=== PATIENT | female | born 1965 | race Caucasian/White ===

== ENCOUNTER 2016-12-03 11:03 | Emergency (ER) | payer OTHER ==
--- NOTE | 2016-12-03 11:12 | UC ---
Hypertension HPI - HPI Summary HPI Summary: 51 year old female presents with high blood pressure , fatigue and shortness of breath. I am very concerned about heart block and will send her to the ER - History of Current Complaint Stated Complaint: TIRED,ELEVATED BP Time Seen by Provider: 12/03/16 11:11 Hx Last Menstrual Period: SOMETIME IN OCTOBER- SHE IS NOT SURE, PERIODS ARE LESS FREQ - Allergies/Home Medications Allergies/Adverse Reactions: Allergies Allergy/AdvReac Type Severity Reaction Status Date / Time No Known Allergies Allergy Verified 12/03/16 13:33 Home Medications: Home Medications NK [No Home Medications Reported] 12/03/16 [History Confirmed 12/03/16] PMH/Surg Hx/FS Hx/Imm Hx Previously Healthy: Yes - Surgical History Surgical History: Yes Surgery Procedure, Year, and Place: c-sections x 3, tonsilectomy - Family History Known Family History: Positive: Hypertension - Social History Alcohol Use: None Substance Use Type: None Smoking Status (MU): Heavy Every Day Tobacco Smoker Type: Cigarettes Amount Used/How Often: 1/2 PPD Have You Smoked in the Last Year: Yes Household Exposure Type: Cigarettes Review of Systems Constitutional: Fatigue Skin: Negative Eyes: Negative ENT: Negative Respiratory: Negative Cardiovascular: Negative Gastrointestinal: Negative Genitourinary: Negative Motor: Negative Neurovascular: Negative Musculoskeletal: Negative Neurological: Negative Psychological: Negative All Other Systems Reviewed And Are Negative: Yes Physical Exam Triage Information Reviewed: Yes Appearance: Ill-Appearing Vital Signs Reviewed: Yes Eye Exam: Normal ENT Exam: Normal Dental Exam: Normal Neck exam: Normal Neck: Positive: 1 Respiratory Exam: Normal Cardiovascular: Positive: Bradycardia Abdominal Exam: Normal Musculoskeletal Exam: Normal Neurological Exam: Normal Psychological Exam: Normal Skin Exam: Normal Hypertension Course/Dx - Course Course Of Treatment: ER - Differential Dx/Diagnosis Provider Diagnoses: HYPERTENSION Discharge - Discharge Plan Condition: Stable Disposition: HOME Patient Education Materials: Hypertension (ED) Referrals: Estephania Null PA [Physician Insurance Claim Representative] - Additional Instructions: GO TO ER FOR CARDIAC EVALUATION.
[2016-12-03 11:22] VITALS: BP 151/65
== END 2016-12-03 11:41 | disposition home or self-care (01) ==
LOC: UCCORT 11:03
DX: I10 Essential (primary) hypertension (principal); R53.83 Other fatigue; R06.02 Shortness of breath; R07.89 Other chest pain; F17.210 Nicotine dependence, cigarettes, uncomplicated
CPT/HCPCS: 93005; 99211; G0463

== ENCOUNTER 2016-12-03 13:25 | Observation (INO) | payer OTHER ==
[2016-12-03] MEDS ORDERED: NS 0.9% 1000 ML* 1,000 ML IV ONE (14:27)
--- NOTE | 2016-12-03 15:13 | RAD ---
Indication: Hypertension, bradycardia. Single frontal view of the chest performed at 1451 hours was reviewed. No prior study is available for comparison. No mediastinal shift is noted. Heart is of normal size and configuration. Lung kat appear clear. IMPRESSION: NO ACTIVE CARDIOPULMONARY DISEASE IS NOTED.
[2016-12-03 15:19] LABS: Hematocrit 42 % (35-47); Hemoglobin 13.8 g/dl (12.0-16.0); Mean Corpuscular HGB Conc 33 g/dl (31-36); Mean Corpuscular Hemoglobin 31 pg (27-31); Mean Corpuscular Volume 93 fL (80-97); Mean Platelet Volume 10 um3 (7.4-10.4); Red Blood Count 4.53 10^6/ul (4.0-5.4); Red Cell Distribution Width 14 % (10.5-15)
[2016-12-03 15:20] LABS: Urine Bilirubin Negative (Negative); Urine Glucose Negative (Negative); Urine Nitrite Negative (Negative)
[2016-12-03 15:34] LABS: Albumin 4.1 g/dL (3.2-5.2); BUN/Creatinine Ratio 24.1 (8-20); Calcium 8.9 mg/dL (8.6-10.3); EGFR African American 139.9 (>60); EGFR Non-African American 108.7 (>60); Globulin 2.8 g/dL (2-4); Magnesium 2.1 mg/dL (1.9-2.7); Potassium 3.7 mmol/L (3.5-5.0); Total Bilirubin 0.5 mg/dL (0.2-1.0); Total Protein 6.9 g/dL (6.4-8.9)
[2016-12-03 15:36] LABS: Troponin I 0.01 ng/mL (<0.04)
[2016-12-03 15:51] LABS: T4 8.39 mcg/mL (6.09-12.23)
[2016-12-03 15:53] LABS: TSH (Thyroid Stimulating Horm) 3.2 mcIU/mL (0.34-5.60)
--- NOTE | 2016-12-03 19:41 | ED ---
Daryl Nicole Thomas, scribed for Laura Matamoros MD on 12/03/16 at 1431 . Palpitations / Dysrhythmia - HPI Summary HPI Summary: The pt is a 51 y/o F accompanied by mother, sister, and other family members referred from urgent care c/o bradycardia and hypertension. In the ED, her HR is 48 BPM and her BP is 175/75. Pt additionally c/o L-sided facial pain (ache), L shoulder pain (ache), generally not feeling well, tiredness, and insomnia ( sleeps 3-4 hours per day) and "liver pain" for weeks. Was told she had "cirrhosis" but she states she does not drink. Has not had a liver bx. Pt denies CP and leg pain. PMHx: HTN, premclampsia, cirrhosis. PSHx: C-sections x3, tonsillectomy. SHx: smoking (1/2 PPD), no illicit drugs, no alcohol. FHx: HTN. She had a slow HR where a catheterization was performed in [facility] more than 2 yrs ago, and she was told the cath was normal. 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 She lives in [place] and presented at the [facility], but states she did not want to go to the [facility], or a [facility], so came to [place] by private car. The last time she saw her PCP was Dr. Null, who has now retired, more than three years ago. Pt is from [place], states she can understand my [place] and declines an interpreter for the deaf. - History of Current Complaint Chief Complaint: EDDysrhythmPalp Time Seen by Provider: 12/03/16 14:24 Hx Obtained From: Patient, Family/Diffuser Operator - mother, sister, and 2 other family members present Onset/Duration: Gradual Onset, Lasting Weeks, Still Present Timing: Constant Severity Initially: Moderate Severity Currently: Moderate Character: Slow Aggravating: Nothing Alleviating: Nothing - Risk Factors Cardiac: Hypertension, Smoking, Family History Pulmonary Embolism: Smoking - Allergy/Home Medications Allergies/Adverse Reactions: Allergies Allergy/AdvReac Type Severity Reaction Status Date / Time No Known Allergies Allergy Verified 12/03/16 13:33 PMH/Surg Hx/FS Hx/Imm Hx Previously Healthy: No Endocrine/Hematology History: Denies: Hx Diabetes, Hx Systemic Lupus Erythematosus Cardiovascular History: Reports: Hx Hypertension - gestational Respiratory History: Denies: Hx Chronic Obstructive Pulmonary Disease (COPD) GI History: Reports: Hx Cirrhosis Musculoskeletal History: Denies: Hx Rheumatoid Arthritis - Surgical History Surgery Procedure, Year, and Place: c-sections x 3, tonsilectomy Infectious Disease History: No Infectious Disease History: Denies: Traveled Outside the [place] in Last 30 Days - Family History Known Family History: Positive: Hypertension, Other - thyroid disease, hyper and hypo - Social History Alcohol Use: None Substance Use Type: Reports: None Smoking Status (MU): Light Every Day Tobacco Smoker Type: Cigarettes Amount Used/How Often: 2-3 cigarettes daily Have You Smoked in the Last Year: Yes Review of Systems Positive: Fatigue. Negative: Fever Positive: Other - POS: bradycardia (48 BPM), elevated BP (175/75). Negative: Chest Pain Respiratory: Negative Positive: Other - "liver pain" Genitourinary: Negative Positive: Other - POS: L-sided facial pain (ache), L shoulder pain (ache); NEG: leg pain Skin: Negative Neurological: Other - POS: tiredness, insomnia Psychological: Normal All Other Systems Reviewed And Are Negative: Yes Physical Exam Triage Information Reviewed: Yes Vital Signs On Initial Exam: Initial Vitals Temp Pulse Resp BP Pulse Ox 98.2 F 48 12 184/76 100 12/03/16 13:33 12/03/16 13:33 12/03/16 13:33 12/03/16 13:33 12/03/16 13:33 Vital Signs Reviewed: Yes Appearance: Positive: Well-Appearing, Well-Nourished, Pain Distress Skin: Positive: Warm, Skin Color Reflects Adequate Perfusion Head/Face: Positive: Normal Head/Face Inspection Eyes: Positive: Conjunctiva Clear ENT: Positive: Normal ENT inspection Neck: Positive: Supple, Nontender, No Lymphadenopathy Respiratory/Lung Sounds: Positive: Clear to Auscultation, Breath Sounds Present , Other - No respiratory distress Cardiovascular: Positive: Pulses are Symmetrical in both Upper and Lower Extremities, Bradycardia, Other - Elevated BP. Brisk cap refill. Negative: Leg Edema Left, Leg Edema Right Abdomen Description: Positive: Nontender, No Organomegaly, Soft. Negative: Bruit, Distended, Guarding, Hepatomegaly, McBurney's Point Tenderness, Peritoneal Signs, Pulsatile Mass, Splenomegaly Bowel Sounds: Positive: Present Musculoskeletal: Positive: Strength/ROM Intact, Other - NEG: calf tenderness. Negative: Edema Left, Edema Right Neurological: Positive: Sensory/Motor Intact, Alert, Oriented to Person Place, Time, Speech Normal Psychiatric: Positive: Normal - Elmore Coma Scale Coma Scale Total: 15 Diagnostics - Vital Signs Vital Signs Temp Pulse Resp BP Pulse Ox 12/03/16 14:01 98.2 F 48 12 175/75 98 12/03/16 13:33 98.2 F 48 12 184/76 100 - Laboratory Lab Results: Lab Results 12/03/16 12/03/16 12/03/16 Range/Units 15:00 15:03 15:03 WBC 8.0 (3.5-10.8) 10^3/ul RBC 4.53 (4.0-5.4) 10^6/ul Hgb 13.8 (12.0-16.0) g/dl Hct 42 (35-47) % MCV 93 (80-97) fL MCH 31 (27-31) pg MCHC 33 (31-36) g/dl RDW 14 (10.5-15) % Plt Count 234 (150-450) 10^3/ul MPV 10 (7.4-10.4) um3 Neut % (Auto) 45.6 (38-83) % Lymph % (Auto) 40.4 (25-47) % Brooke % (Auto) 5.5 (1-9) % Eos % (Auto) 7.7 H (0-6) % Baso % (Auto) 0.8 (0-2) % Absolute Neuts (auto) 3.7 (1.5-7.7) 10^3/ul Absolute Lymphs (auto) 3.3 (1.0-4.8) 10^3/ul Absolute Monos (auto) 0.4 (0-0.8) 10^3/ul Absolute Eos (auto) 0.6 (0-0.6) 10^3/ul Absolute Basos (auto) 0.1 (0-0.2) 10^3/ul Absolute Nucleated RBC 0.01 10^3/ul Nucleated RBC % 0.1 INR (Anticoag Therapy) 0.86 L (0.89-1.11) APTT 31.0 (26.0-36.3) seconds D-Dimer, Quantitative < 200 (Less Than 230) ng/mL Sodium (133-145) mmol/L Potassium (3.5-5.0) mmol/L Chloride (101-111) mmol/L Carbon Dioxide (22-32) mmol/L Anion Gap (2-11) mmol/L BUN (6-24) mg/dL Creatinine (0.51-0.95) mg/dL Est GFR ( Amer) (>60) Est GFR (Non-Af Amer) (>60) BUN/Creatinine Ratio (8-20) Glucose (70-100) mg/dL Lactic Acid (0.5-2.0) mmol/L Calcium (8.6-10.3) mg/dL Magnesium (1.9-2.7) mg/dL Total Bilirubin (0.2-1.0) mg/dL AST (13-39) U/L ALT (7-52) U/L Alkaline Phosphatase (34-104) U/L Total Creatine Kinase (10-223) U/L CK-MB (CK-2) (0.6-6.3) ng/mL Troponin I (<0.04) ng/mL B-Natriuretic Peptide ( - 100) pg/mL Total Protein (6.4-8.9) g/dL Albumin (3.2-5.2) g/dL Globulin (2-4) g/dL Albumin/Globulin Ratio (1-3) TSH (0.34-5.60) mcIU/mL Thyroxine (T4) (6.09-12.23) mcg/mL Urine Color Straw Urine Appearance Clear Urine pH 7.0 (5-9) Ur Specific Cranbury 1.003 L (1.010-1.030) Urine Protein Negative (Negative) Urine Ketones Negative (Negative) Urine Blood Negative (Negative) Urine Nitrate Negative (Negative) Urine Bilirubin Negative (Negative) Urine Urobilinogen Negative (Negative) Ur Leukocyte Esterase Negative (Negative) Urine Glucose Negative (Negative) 12/03/16 12/03/16 12/03/16 Range/Units 15:03 15:03 15:03 WBC (3.5-10.8) 10^3/ul RBC (4.0-5.4) 10^6/ul Hgb (12.0-16.0) g/dl Hct (35-47) % MCV (80-97) fL MCH (27-31) pg MCHC (31-36) g/dl RDW (10.5-15) % Plt Count (150-450) 10^3/ul MPV (7.4-10.4) um3 Neut % (Auto) (38-83) % Lymph % (Auto) (25-47) % Brooke % (Auto) (1-9) % Eos % (Auto) (0-6) % Baso % (Auto) (0-2) % Absolute Neuts (auto) (1.5-7.7) 10^3/ul Absolute Lymphs (auto) (1.0-4.8) 10^3/ul Absolute Monos (auto) (0-0.8) 10^3/ul Absolute Eos (auto) (0-0.6) 10^3/ul Absolute Basos (auto) (0-0.2) 10^3/ul Absolute Nucleated RBC 10^3/ul Nucleated RBC % INR (Anticoag Therapy) (0.89-1.11) APTT (26.0-36.3) seconds D-Dimer, Quantitative (Less Than 230) ng/mL Sodium 139 (133-145) mmol/L Potassium 3.7 (3.5-5.0) mmol/L Chloride 106 (101-111) mmol/L Carbon Dioxide 26 (22-32) mmol/L Anion Gap 7 (2-11) mmol/L BUN 14 (6-24) mg/dL Creatinine 0.58 (0.51-0.95) mg/dL Est GFR ( Amer) 139.9 (>60) Est GFR (Non-Af Amer) 108.7 (>60) BUN/Creatinine Ratio 24.1 H (8-20) Glucose 90 (70-100) mg/dL Lactic Acid 0.6 (0.5-2.0) mmol/L Calcium 8.9 (8.6-10.3) mg/dL Magnesium 2.1 (1.9-2.7) mg/dL Total Bilirubin 0.50 (0.2-1.0) mg/dL AST 21 (13-39) U/L ALT 24 (7-52) U/L Alkaline Phosphatase 74 (34-104) U/L Total Creatine Kinase 76 (10-223) U/L CK-MB (CK-2) 1.6 (0.6-6.3) ng/mL Troponin I 0.01 (<0.04) ng/mL B-Natriuretic Peptide 76 ( - 100) pg/mL Total Protein 6.9 (6.4-8.9) g/dL Albumin 4.1 (3.2-5.2) g/dL Globulin 2.8 (2-4) g/dL Albumin/Globulin Ratio 1.5 (1-3) TSH 3.20 (0.34-5.60) mcIU/mL Thyroxine (T4) 8.39 (6.09-12.23) mcg/mL Urine Color Urine Appearance Urine pH (5-9) Ur Specific [place] (1.010-1.030) Urine Protein (Negative) Urine Ketones (Negative) Urine Blood (Negative) Urine Nitrate (Negative) Urine Bilirubin (Negative) Urine Urobilinogen (Negative) Ur Leukocyte Esterase (Negative) Urine Glucose (Negative) Result Diagrams: 12/03/16 15:03 12/03/16 15:03 Lab Statement: Any lab studies that have been ordered have been reviewed, and results considered in the medical decision making process. - Radiology CXR Xray Interpretation: No Acute Changes - No active cardiopulmonary disease Radiology Interpretation Completed By: Radiologist - EKG 13:40 Cardiac Rate: Bradycardia - 48 BPM EKG Rhythm: Sinus Bradycardia EKG Interpretation: Nml AV, nml IV conduction time, nml QTc (419), nml Pierson (15) EKG Comparison: Other - on EKG performed today at 11:08, there is an additional PVC Re-Evaluation - Re-Evaluation First Eval Re-Evaluation Time: 18:30 - advised of lab results, no new complaints. HR 46, Change: Unchanged Course/Dx - Course Assessment/Plan: The pt is a 51 y/o F accompanied by mother, sister, and other family members referred from urgent care c/o bradycardia and hypertension. In the ED, her HR is 48 BPM and her BP is 175/75. Pt additionally c/o L-sided facial pain (ache), L shoulder pain (ache), tiredness, and insomnia (sleeps 3-4 hours per day). Pt denies CP and leg pain. PMHx: HTN, premclampsia, cirrhosis. PSHx: C-sections x3, tonsillectomy. SHx: smoking (1/2 PPD), no illicit drugs, no alcohol. FHx: HTN. She had a slow HR in past and was evaluated in [facility] ( cannot remember which hospital) where a catheterization was performed. Was advised that the cath was OK, thinks it was more than two years ago. 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 She lives in [place]. The last time she saw her PCP was more than three years ago. EKG reveals sinus bradycardia at 48 BPM, nml AV, nml IV conduction time, nml QTc (419), axis 15, no acute changes, EKG performed today at 11:08 has additional PVC. CXR reveals no active cardiopulmonary disease. Bloodwork shows BUN/Creatinine 24.1, INR 0.86, Eos % 7.7. UA is negative. first troponin is negative. d-dimer is negative. Thyroid function is normal. LFT's are normal, so no further evaluation of "liver pain" done at this time. Patient s medication reviewed this visit. Blood pressure noted. In the ED course she was given ASA and IV fluids. I consulted with Dr. Oseguera, cardiology, at 18: 39. He said that he would be available to consult if needed. I also consulted with Dr. Martinez, hospitalist. She will admit the patient for observation at 18: 47. Pt is agreeable with this plan. - Diagnoses Differential Diagnosis/HQI/PQRI: Positive: AV Block, Cardiomyopathy, Medication Induced, Pulmonary Embolism, Other - ACS Provider Diagnoses: Bradycardia, Elevated BP without diagnosis of hypertension - Physician Notifications Discussed Care Of Patient With: Singh Oseguera MD Time Discussed With Above Provider: 18:24 Instructed by Provider To: Admit As Observation - I first paged Dr. Oseguera at 18 :24. We spoke at 18:39 and discussed admitting the patient. He said that he would be available to consult if needed. I also consulted with Dr. Martinez, hospitalist. She will admit the patient for observation at 18:47. - Critical Care Time Critical Care Time: 30-74 min Discharge - Discharge Plan Condition: Fair Disposition: ADMITTED TO [facility] Referrals: Irasema Kumar MD [Primary Care Provider] - The documentation as recorded by the Daryl kebede Thomas accurately reflects the service I personally performed and the decisions made by me, Laura Matamoros MD.
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
[2016-12-03] MEDS ORDERED: Albuterol 2.5 MG/3 ML NEB.SOL* (0.083%) INH PRN (20:24)
[2016-12-03] MEDS ORDERED: Ondansetron INJ* 2 MG/ML VIAL IV PRN (20:27)
[2016-12-03] MEDS ORDERED: traMADol TAB* 50 MG PO PRN (20:27)
[2016-12-03] MEDS ORDERED: CMCS: Melatonin (NF) 3 MG TAB PO PRN (20:27)
[2016-12-03] MEDS ORDERED: Nicotine Inhaler* 10 MG AMP INH PRN (20:27)
[2016-12-03] MEDS: Docusate CAP* 100 MG PO SCH (22:14)
[2016-12-03] MEDS: DOXYcycline CAP(*) 100 MG PO SCH (22:14)
[2016-12-03] MEDS: NS 0.9% 1000 ML* 1,000 ML IV SCH (22:40)
[2016-12-03] MEDS: Acetaminophen TAB* 325 MG PO PRN (22:51)
[2016-12-04] MEDS ORDERED: Omeprazole CAP* 20 MG PO SCH (06:00)
[2016-12-04] MEDS: Docusate CAP* 100 MG PO SCH (07:38)
[2016-12-04] MEDS: DOXYcycline CAP(*) 100 MG PO SCH (07:38)
[2016-12-04] MEDS: Acetaminophen TAB* 325 MG PO PRN (07:39)
[2016-12-04] MEDS: NS 0.9% 1000 ML* 1,000 ML IV SCH (13:13)
--- NOTE | 2016-12-04 16:21 | ECHO ---
Patient: NELI CORDON [facility] Rec#: [id number] : 1965 Date: 12/04/2016 Age: 51y Height: 170.18 cm / 67.0 in Weight: 97.98 kg / 215.9 lbs Sex: F BSA: 2.09 Room#: 432 Admit Date#: 12/03/2016 Type: Inpatient Referring: Brian Kaur MD Reading: Kaden Hwang MD Client Service Representative: [facility] Tran[facility]ch[facility]ogram Indication: Palpitations, bradycardia BP: 114/65 HR: 44 Rhythm: Bradycardia Findings History: HTN, premclampsia, cirrohosis, smoker, cardiac cath 2016 in [place]. Technical Comments: The study quality is fair. The study is technically limited due to poor parasternal windows. The study is technically limited due to patient body habitus. Completed at 1507. Left Ventricle: The left ventricular chamber size is mildly dilated. Mild concentric left ventricular hypertrophy is observed. Global left ventricular wall motion and contractility are within normal limits. There is normal left ventricular systolic function.Marked bradycardia in the 40's noted throughout the study. The estimated ejection fraction is 55-60%. Normal left ventricular diastolic filling is observed. Left Atrium: The left atrium is severely dilated. Right Ventricle: The right ventricular cavity size is normal. The right ventricular global systolic function is low normal. Right Atrium: The right atrium is moderately dilated. Aortic Valve: The aortic valve is trileaflet. The aortic valve leaflets are mildly thickened. There is no evidence of aortic regurgitation. There is no evidence of aortic stenosis. Mitral Valve: The mitral valve leaflets are mildly thickened. There is mild mitral regurgitation. There is no evidence of mitral stenosis. Tricuspid Valve: The tricuspid valve leaflets are normal. There is mild tricuspid regurgitation. The right ventricular systolic pressure is estimated at 33 mmHg. There is evidence that pulmonary hypertension may be underestimated. There is no tricuspid stenosis. Pulmonic Valve: The pulmonic valve structure is not well visualized. There is a trace pulmonic regurgitation. Pericardium: There is no significant pericardial effusion. A pericardial fat pad is visualized. Aorta: The ascending aorta is not well visualized. There is no dilatation of the aortic arch. There is no dilation of the aortic root. Pulmonary Artery: The main pulmonary artery is not well visualized. Venous: The inferior vena cava is dilated. There is an approximate 50% respiratory change in the inferior vena cava dimension. Summary: There was not any prior study for comparison. Conclusions The study quality is fair. There is normal left ventricular systolic function. Marked bradycardia in the 40's noted throughout the study. The estimated ejection fraction is 55-60%. The left atrium is severely dilated. The right ventricular global systolic function is low normal. The right atrium is moderately dilated. The aortic valve leaflets are mildly thickened. There is mild tricuspid regurgitation. The right ventricular systolic pressure is estimated at 33 mmHg. Measurements Name Value Normal Range RVIDd (AP) 2D 3.3 cm (0.9 - 2.6) RVDdMajor (2D) 3.8 cm (2.2 - 4.4) RAd ISD 4CH 5.7 cm (3.4 - 4.9) RA (A4C)W 4 cm (2.9 - 4.6) IVSd (2D) 1.1 cm (0.6 - 1) LVPWd (2D) 1.1 cm (0.6 - 1) LVIDd (2D) 5.6 cm (3.6 - 5.4) LVIDs (2D) 3.85 cm - LV FS (2D) 31 % (25 - 45) Aortic Annulus 2.2 cm (1.4 - 2.6) Ao root diameter (2D) 3 cm (2.1 - 3.5) Aortic arch 3.2 cm (1.8 - 3.4) LA dimension (AP) 2D 4.6 cm (2.3 - 3.8) LAd ISD 4CH 5.9 cm (2.9 - 5.3) LA ISD 4CH W 5 cm (2.5 - 4.5) Name Value Normal Range LA ESV SP 4CH (A/L) 90 ml - LA ESV SP 2CH (A/L) 125 ml - LA ESV BP (A/L) 106 ml - LA ESV BP (A/L) index 50.86 ml/m2 - LA ESV SP 4CH (MOD) 81 ml - LA ESV SP 2CH (MOD) 119 ml - Name Value Normal Range MV E-wave Vmax 0.74 m/sec - MV deceleration time 196.85 msec - MV A-wave Vmax 0.3 m/sec - MV E:A ratio 2.5 ratio - LV septal e' Vmax 0.1 m/sec - LV lateral e' Vmax 0.12 m/sec - LV E:e' septal ratio 7.4 ratio - LV E:e' lateral ratio 6.17 ratio - Name Value Normal Range AV Vmax 1.42 m/sec - AV VTI 35.1 cm - AV peak gradient 8.06 mmHg - AV mean gradient 4.73 mmHg - LVOT Vmax 0.97 m/sec - LVOT VTI 24.41 cm - LVOT peak gradient 3.77 mmHg - LVOT mean gradient 2.02 mmHg - SUKHI Vmax 1.1 m/sec - Name Value Normal Range TR Vmax 2.1 m/sec - TR peak gradient 18 mmHg - RAP 15 mmHg - RVSP 33 mmHg - IVC diameter 2.2 cm - Name Value Normal Range PV Vmax 0.74 m/sec - PV peak gradient 2.19 mmHg -
[2016-12-04 18:35] VITALS: BP 143/78
--- NOTE | 2016-12-05 03:10 | DS ---
DISCHARGE SUMMARY: DATE OF ADMISSION: 12/03/16 DATE OF DISCHARGE: 12/04/16 HISTORY OF PRESENT ILLNESS/HOSPITAL COURSE: This is a 51-year-old woman, who presented with a chief complaint of weakness. She also complained about problems at work with job stress and sleep disrup tion from shift changes. She reported aching in her joints of her hands, elbows and knees. She com plained of headache, some dizziness and palpitations, feeling her heart beat hard but not fast. She had a negative cardiac catheterization in [place] 7 years ago. The rest of the history and physic al exam is detailed in the admission note. EKG showed sinus bradycardia at 48. On the monitor while lying in bed, she ranged from 39 to 42. I think she was basically asymptomatic from this. I encouraged her to walk around. The patient was started on doxycycline pending the results of a Lyme serology. I have ordered an ec hocardiogram, which will be done before discharge. I would like to review the report before she goe s. It is not available at the time of this dictation. I note the Lyme serology was received, it sh ould take a few days to come back with final report. FINAL DIAGNOSES: 1. Sinus bradycardia. 2. Multiple arthralgias. 3. Stress from employment issues. DISCHARGE MEDICATIONS: 1. Acetaminophen 650 mg every 6 hours p.r.n. 2. Doxycycline 100 mg b.i.d. for 13 more days. [id number]/[facility] #: [id number]
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
== END 2016-12-04 18:05 | disposition home or self-care (01) ==
LOC: ED 13:25 → MEDTELE 19:24
PROVIDERS: ADMIT Hospitalist; ATTEND Internal Medicine
DX: R00.1 Bradycardia, unspecified (principal); M25.50 Pain in unspecified joint; Z56.6 Other physical and mental strain related to work; I36.1 Nonrheumatic tricuspid (valve) insufficiency; R03.0 Elevated blood-pressure reading, without diagnosis of hypertension; F17.210 Nicotine dependence, cigarettes, uncomplicated; R53.83 Other fatigue; F41.8 Other specified anxiety disorders; R53.1 Weakness
CPT/HCPCS: 36415; 71010; 80053; 81003; 82550; 82553; 83605; 83735; 83880; 84436; 84443; 84484; 85025; 85379; 85610; 85730; 86618; 93005; 93306; 94760; 96374; 99284; A9270-GY; G0378

== ENCOUNTER 2018-07-07 13:01 | Emergency (ER) | payer OTHER ==
[2018-07-07 14:18] VITALS: BP 123/78
--- NOTE | 2018-07-07 14:49 | UC ---
Ear Complaint HPI - HPI Summary HPI Summary: 53-year-old woman chief complaint of left ear pain. Started 4 days ago ago. She has had cold symptoms. No fevers or chills. No trauma. Pain is worse when Chews an open close her mouth. Denies dental infection or tooth pain. No rash. - History of Current Complaint Chief Complaint: UCEar Stated Complaint: LEFT EAR PAIN Time Seen by Provider: 07/07/18 14:37 Hx Last Menstrual Period: SOMETIME IN OCTOBER- SHE IS NOT SURE, PERIODS ARE LESS FREQ Pain Intensity: 6 - Allergies/Home Medications Allergies/Adverse Reactions: Allergies Allergy/AdvReac Type Severity Reaction Status Date / Time adhesive Allergy Blisters, Verified 07/07/18 14:13 Itching, Swelling gluten Allergy GI Upset, Verified 07/07/18 14:13 Vomiting Home Medications: Home Medications Acetaminophen [Acetaminophen Extra Strength] 1,000 mg PO Q6H PRN 07/07/18 [ History Confirmed 07/07/18] Aspirin 81 mg CHEW TAB* [Aspirin Low Dose TAB*] 81 mg PO DAILY 07/07/18 [ History Confirmed 07/07/18] DULoxetine DR CAP* [Cymbalta CAP*] 30 mg PO DAILY 07/07/18 [History Confirmed ] Losartan TAB* [Cozaar TAB*] 50 mg PO DAILY 07/07/18 [History Confirmed 07/07/18] Omeprazole CAP (NF) [Prilosec CAP* 20 MG] 20 mg PO DAILY 07/07/18 [History Confirmed 07/07/18] tiZANidine TAB* [Zanaflex TAB*] 4 mg PO DAILY PRN 07/07/18 [History Confirmed ] PMH/Surg Hx/FS Hx/Imm Hx Previously Healthy: Yes Endocrine History: Dyslipidemia Cardiovascular History: Hypertension GI/ History: Gastroesophageal Reflux - Surgical History Surgical History: Yes Surgery Procedure, Year, and Place: Right TKA; c-sections x 3, tonsilectomy, appy, tubal - Family History Known Family History: Positive: Hypertension, Other - thyroid disease, hyper and hypo - Social History Alcohol Use: None Substance Use Type: None Smoking Status (MU): Former Smoker Type: Cigarettes Amount Used/How Often: 2-3 cigarettes daily Have You Smoked in the Last Year: Yes When Did the Patient Quit Smoking/Using Tobacco: ~2017 Household Exposure Type: Cigarettes Review of Systems All Other Systems Reviewed And Are Negative: Yes Constitutional: Positive: Negative Skin: Positive: Negative Eyes: Positive: Negative ENT: Positive: Ear Ache, Nasal Discharge Respiratory: Positive: Negative Cardiovascular: Positive: Negative Gastrointestinal: Positive: Negative Motor: Positive: Negative Neurovascular: Positive: Negative Musculoskeletal: Positive: Negative Neurological: Positive: Negative Psychological: Positive: Negative Is Patient Immunocompromised?: No Physical Exam Triage Information Reviewed: Yes Appearance: Well-Appearing, No Pain Distress, Well-Nourished Vital Signs: Initial Vital Signs Temp 99.2 F 07/07/18 14:10 Pulse 82 07/07/18 14:10 Resp 20 07/07/18 14:10 BP 123/78 07/07/18 14:10 Pulse Ox 100 07/07/18 14:10 Vital Signs Reviewed: Yes Eye Exam: Normal Eyes: Positive: Conjunctiva Clear ENT: Positive: Pharynx normal, TMs normal, Other - Mild tenderness in the left ear canal with exam. Tender to palpation at left TMJ. Parotid glans non tender. Dental Exam: Normal Dental: Negative: Gross Decay/Caries @, Dental Fracture @ Neck: Positive: Supple Respiratory: Positive: Lungs clear, Normal breath sounds, No respiratory distress Cardiovascular: Positive: RRR Musculoskeletal Exam: Normal Musculoskeletal: Positive: Strength Intact, ROM Intact Neurological Exam: Normal Neurological: Positive: Alert, Muscle Tone Normal Psychological Exam: Normal Psychological: Positive: Age Appropriate Behavior Skin Exam: Normal Skin: Negative: Rashes Ear Complaint Course/Dx - Course Course Of Treatment: Patient is tender on the left side of the face primarily at the TMJ left TMJ. No temporal tenderness to palpation. Because of the possibility of infection we will go ahead and treat with an antibiotic. Otherwise we'll treat for TMJ. The plan is for the patient to follow-up with her primary care physician. Reevaluate sooner if worse. - Differential Dx/Diagnosis Provider Diagnosis: Left-sided face pain, Left ear pain, TMJ tenderness, left Discharge - Sign-Out/Discharge Documenting (check all that apply): Patient Departure All imaging exams completed and their final reports reviewed: No Studies - Discharge Plan Condition: Stable Disposition: HOME Prescriptions: Amoxicillin/Clavulanate TAB* [Augmentin TAB 875*] 875 mg PO BID #20 tab Ibuprofen TAB* [Motrin TAB* 600 MG] 600 mg PO Q8H PRN #30 tab PRN Reason: Pain Patient Education Materials: Temporomandibular Disorder (ED), Earache (ED) Referrals: Jus Louis MD [Primary Care Provider] - Additional Instructions: FOLLOW UP WITH YOUR DOCTOR. GET RECHECKED FOR ANY WORSENING OF YOUR CONDITION OR QUESTIONS OR CONCERNS. - Billing Disposition and Condition Condition: STABLE Disposition: Home
== END 2018-07-07 14:58 | disposition home or self-care (01) ==
LOC: UCCORT 13:01
DX: H92.02 Otalgia, left ear (principal); R51 Headache; R29.898 Other symptoms and signs involving the musculoskeletal system; E78.5 Hyperlipidemia, unspecified; I10 Essential (primary) hypertension; K21.9 Gastro-esophageal reflux disease without esophagitis; Z79.899 Other long term (current) drug therapy; Z91.09 Other allergy status, other than to drugs and biological substances; Z87.891 Personal history of nicotine dependence; Z91.018 Allergy to other foods; Z79.82 Long term (current) use of aspirin
CPT/HCPCS: 99212; G0463

== ENCOUNTER 2019-06-03 10:13 | Emergency (ER) | payer OTHER ==
--- OUTSIDE RECORDS SUMMARY | 2019-06-03 10:36 | XMS REPORT | Continuity of Care Document ---
:1965 External Reference #:[id number] Author Name Dev Khan M.D. (transmitted by agent of provider Britany Tim) Address [address] [place] [id number] Care Team Providers Name Role Phone Halina Garner NP Care Team Information Check And Transfer Beader [phone] Problems Active Problems Provider Date Disorder of thyroid gland Dev Khan M.D. Onset: 01/13/2011 Head and neck swelling Dev Khan M.D. Onset: 01/13/2011 Social History Type Date Description Comments Sex Unknown Cigarette Use Quit 3 Years Ago ETOH Use Rarely consumes alcohol Recreational Drug Use Never Used Drugs Allergies, Adverse Reactions, Alerts Active Allergies Reaction Severity Comments Date NKDA 01/07/2011 Laundry Soap 02/03/2017 Gummies 02/03/2017 Medications Active Medications SIG Qnty Indications Ordering Date Provider Cyclobenzaprine HCL one tab daily 15tabs Dev Khan, 11/01/2018 5mg Tablets at hs. M.D. Levothyroxine Sodium half pill by 30tabs Dev Khan, 10/24/2018 125mcg mouth every M.D. Tablets day Losartan Potassium 1 by mouth Unknown 50mg Tablets every day Duloxetine HCL 1 by mouth Unknown 30mg Caps DR Part twice a day Hydroxychloroquine Sulfate 1 by mouth Unknown 200mg every day Tablets Tramadol HCL 1-2. tab q4h. Unknown 50mg Tablets for pain Immunizations Description No Information Available Vital Signs Date Vital Result Comment 2019 2:32pm Weight 243.00 lb Height 65.5 inches 5'5.50" BMI (Body Mass Index) 39.8 kg/m2 BP Systolic 133 mmHg BP Diastolic 81 mmHg Heart Rate 61 /min O2 % BldC Oximetry 100 % Body Temperature 97.6 F Pain Level 0 11/01/2018 5:15pm Weight 244.00 lb Height 65.5 inches 5'5.50" BMI (Body Mass Index) 40.0 kg/m2 BP Systolic 136 mmHg BP Diastolic 81 mmHg Heart Rate 57 /min O2 % BldC Oximetry 98 % Body Temperature 97.2 F Pain Level 9 Results Test Acquired Date Facility Test Result H/L Range Note TSH+Free 01/20/2019 [facility] Thyroid Stim 2.85 uIU/mL Normal 0.30-4.[address] Hormone [place], [place] [id number] [phone] Free T4 1.14 ng/dL Normal 0.76-1.46 1 E03.9, E07.9 Procedures Description No Information Available Medical Devices Description No Information Available Encounters Description No Information Available Assessments Description No Information Available Plan of Treatment 02/03/2017 - Sallie Quigley, NPG47.9 Sleep disorder, [id number] SnoringNew Orders:PSG - Sleep Study, Scheduled: 02/14/17 Functional Status Description No Information Available Mental Status Description No Information Available Referrals Refer to Reason for Referral Status Appt Dev Kuhn M.D. [employer] Created [address] [place] [id number] [phone]
--- OUTSIDE RECORDS SUMMARY | 2019-06-03 10:36 | XMS REPORT ---
:1965 Author Name Camryn Garcias Address [address] [place] [address] Care Team Providers Name Role Phone Camryn Garcias Unavailable Unavailable PROBLEMS Type Condition ICD9-CM Code [id number] Onset Condition SNOMED Code Code Dates Status Problem Postmenopausal N95.2 Active 85120533 atrophic vaginitis Problem Mixed incontinence N39.46 Active 432484014 Problem Unspecified urinary R32 Active 727454749 incontinence ALLERGIES Substance Reaction Event Type Date Status Sylvia acid reflux Drug Allergy May, Active gluten Unknown Drug Allergy May, Active latex rash Drug Allergy May, Active ENCOUNTERS Encounter Location Date Diagnosis [facility] [address] Oct, OBGYN [place], [place] [id number] [facility] May, Mixed incontinence N39.46 OBGYN [facility], and Postmenopausal [place] [id number] atrophic vaginitis N95.2 [facility] 103 Oct, Mixed incontinence N39.46 O[facility], and Postmenopausal [place] [id number] atrophic vaginitis N95.2 [facility] 103 Aug, Mixed incontinence N39.46 OBGYN [facility], and Postmenopausal [place] [id number] atrophic vaginitis N95.2 [facility] [address] Jul, OBGYN [place], [place] [id number] [facility] Jul, Mixed incontinence N39.46 OBGYN [facility], and Postmenopausal [place] [id number] atrophic vaginitis N95.2 IMMUNIZATIONS No Known Immunizations SOCIAL HISTORY Never Assessed REASON FOR REFERRAL FUNCTIONAL STATUS PLAN OF CARE Activity Details Follow Up 6 Months incotninence and atrophy f/u Reason: VITAL SIGNS Height 64.5 in 2019-05-05 Weight 242 lbs 2019-05-05 BMI 40.89 kg/m2 2019-05-05 Blood pressure systolic 130 mm Hg 2019-05-05 Blood pressure diastolic 82 mm Hg 2019-05-05 MEDICATIONS Medication Instructions Dosage Frequency Start End Duration Status Date Date lecithin 1200 mg orally once a 1 cap(s) 24h Active day tramadol 50 mg orally every 4 1 tab(s) 4h Active hours Estradiol Vaginal intravaginally 2 1 tab(s) 30 day(s) Active Insert 10 mcg times a week betamethasone topical applied 1 dc Active dipropionate, topically QHS augmented 0.05% ibuprofen 600 mg orally every 6 1 tab(s) 6h Active hours duloxetine 30 mg orally 2 times a 1 cap(s) 12h Active day losartan 50 mg orally once a 1 tab(s) 24h Active day omeprazole 40 mg orally once a 1 cap(s) 24h Active day [place] 3 oral once a day 1 cap 24h Active hydroxychloroquine orally twice a 1 tab(s) 12h Active 200 mg day PROCEDURES No Known procedures RESULTS No Results REASON FOR VISIT 6 Months incontinence and vaginal atrophy f/u Insurance Providers [facility] Health Member Patient Patient Patient Patient Patient Subscriber Subscriber Subscriber Group Insurance Plan Plan Plan Plan ID Relationship Address Phone Name Date of ID Name Date of No Type Insurance Insurance Insurance Coverage to Subscriber Address Phone Name Dates [phone] [place] self Judy [id number] Care [facility] [address] [facility] [place] [address] Medicaid [phone] Medicaid self Judy [id number] [facility] [address] [place] [address] MEDICAL (GENERAL) HISTORY Type Description Date Medical History degenerative joint disease Medical History GERD Medical History 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 crisis Medical History obstructive sleep apnea Medical History essential hypertension Medical History fibromyalgia Medical History inflammatory polyarthropathy Medical History major depressive disorder Medical History vitamind D deficiency Medical History tear film insufficiency Medical History rheumatoid arthritis Medical History osteoarthritis Medical History anxiety, possible PTSD Medical History heart attacks x 3 Medical History migraine Medical History vertigo Surgical History tonsillectomy w/ adenoidectomy Surgical History tubal ligation 2004 Surgical History 1987 Surgical History 1993 Surgical History 2004 Surgical History RT knee replacement 05/05/18 Surgical History appendectomy Hospitalization History see above
--- OUTSIDE RECORDS SUMMARY | 2019-06-03 10:36 | XMS REPORT | Continuity of Care Document ---
:1965 External Reference #:[id number] Author Name Andrés Montaño MD Address [address], [address] [place] [address] Care Team Providers Name Role Phone Jose Huff - Foot Surgery Care Team Information Rabbit Fancier Tayo Fuentes MD - Rheumatology Care Team Information Rabbit Fancier [phone] [facility] - Care Team Information Rabbit Fancier [phone] Endocrinology, Diabetes & Metabolism Jus Louis MD - Family Medicine Care Team Information Rabbit Fancier Problems Active Problems Provider Date Degenerative joint disease involving Estephania Null [facility] Onset: 2014 multiple joints Note: entire spine, Gastroesophageal reflux disease Estephania Null [facility] Onset: 12/31/2011 Toxic diffuse goiter with no crisis Estephania Null [facility] Onset: 12/31/2011 Note: hyperthyroid 2010 + thyroid antibiodies - seen by endo 12/2017 who recommends TFT Q6 months or when symptomatic. Obstructive sleep apnea syndrome Estephania Null [facility] Onset: 04/01/2017 Note: C-pap 2017 Essential hypertension Adeel Browning M.D., [facility] Onset: 12/21/2016 Fib[facility] Onset: 04/15/2017 Inflammatory polyarthropathy Estephania Null [facility] Onset: 04/15/2017 Note: plaquenil 04/2017 Major depressive disorder [facility] Onset: 06/01/2017 Vitamin D deficiency Estephania Null [facility] Onset: 06/02/2017 Tear film insufficiency Cody Alonzo MD Onset: 06/29/2017 Rheumatoid arthritis Irasema Kumar M.D. Onset: 07/21/2017 Moderate recurrent major depression Irasema Kumar M.D. Onset: 07/21/2017 Localized, primary osteoarthritis Cedric Saunders M.D. Onset: 09/22/2017 Right upper quadrant pain Silvia Echevarria MD Onset: 01/12/2018 Abdominal pain Cody Tang MD Onset: 02/08/2018 Constipation Cody Tang MD Onset: 02/08/2018 Disturbance in sleep behavior Halina Garner, MSN, Onset: 04/21/2018 DIPLOMATIC COURIER Hypothyroidism Jus Louis MD Onset: 09/28/2018 Michelle thyroiditis Jus Louis MD Onset: 01/04/2019 Social History Type Date Description Comments Sex Unknown Tobacco Use Start: Unknown End: Quit Unknown Smoking Status Reviewed: 04/04/19 Quit Smokeless Tobacco Never Used Smokeless Tobacco ETOH Use Denies alcohol use Tobacco Use Start: Unknown End: Patient is a former 1/4 ppd x 3 yrs, Unknown smoker quit ~ 1 yr ago 2017 Recreational Drug Use Never Used Drugs Allergies, Adverse Reactions, Alerts Active Allergies Reaction Severity Comments Date NKDA 10/19/2014 Gluten 10/19/2014 ALL Cleaning Products 06/29/2017 [place] 02/08/2018 Latex infection, rash all plastics 05/17/2018 Medications Active Medications SIG Qnty Indications Ordering Date Provider Simethicone 1 tab by mouth 120units R14.0 Jus Louis, 125mg Chewtabs four times a day 9 as needed Duloxetine HCL Take 1 Capsule By 90caps F33.1 Wale, 30mg Caps DR Mouth twice a day MD Silvia 8 Part Omeprazole 1 tab by mouth 30caps B96.81 Wale, 40mg Capsules DR every day MD Silvia 8 Losartan Potassium 1 by mouth every 90tabs I10 Jus Louis, 50mg day 8 Tablets Augmented Betamethasone apply a thin 50gm Wale, Dipropionate layer to vulva MD Silvia 8 0.05% Ointment every night at bedtime Antifungal Cream Unknown 0 Betamethasone Yentzer, Dirk, Dipropionate 0 0.05% Cream Cyclobenzaprine HCL 1 tab by mouth at Unknown 5mg bedtime as needed 0 Tablets for muscle spasm Odalis Garcias, 10mcg Tablets JAMES Cowan 0 Levothyroxine Sodium Take 1 Tablet By Unknown 50mcg Mouth Every 0 Tablets Morning , 30 Minutes Before Eating Imvexxy Starter Pack 1 vaginal Unknown 10mcg suppository every 0 Insert night for 2 weeks Aspirin Unknown 81mg Tablets DR 0 Ibuprofen Take 1 Tab By Unknown 600mg Tablets Mouth Every 8 0 Hours as Needed For Pain [place] 1 cap by mouth Unknown 300mg Capsules daily 0 Lecithin 1 by mouth every Unknown 1200mg Capsules day 0 Tramadol HCL 1 tab twice a day Unknown 50mg Tablets as needed pain 0 Hydroxychloroquine 1 tab by mouth Unknown Sulfate twice a day 0 200mg Tablets Medications Administered in Office Medication SIG Qnty Indications Ordering Provider Date Methylprednisolone acetate Ann-Marie Luis, 07/15/2017 (Depomedrol) 80mg injection RPAC Injection Methylprednisolone acetate Ann-Marie Luis, 07/15/2017 (Depomedrol) 80mg injection RPAC Injection Immunizations CPT Code Status Date Vaccine Lot # [id number] Given 01/24/2015 Tdap injection [id number] Given 10/19/2014 Tdap injection [id number] 87022 Given 10/19/2014 Hepatitis A Vaccine Adult Dosage [id number] 14163 Given 10/19/2014 Hepatitis A Vaccine Adult Dosage 95871 Given 05/14/2009 flu vaccination 77793 Given 05/14/2009 H1N1 Immuniation Adminstration 24024 Given 05/14/2009 H1N1 Immuniation Adminstration 45818 Given 03/16/2008 Pneumovax Injection 96677 Given 03/16/2008 flu vaccination Vital Signs Date Vital Result Comment 04/04/2019 1:44pm BP Systolic Sitting Left Arm 138 mmHg BP Diastolic Sitting Left Arm 81 mmHg Body Temperature 99.0 F Heart Rate 52 /min Respiratory Rate 17 /min Height 65.5 inches 5'5.50" Weight 241.50 lb BMI (Body Mass Index) 39.6 kg/m2 BSA (Body Surface Area) 2.16 m2 [place] body weight in kilograms 58 kg O2 % BldC Oximetry 99 % Ra Pain Level 3 right side 03/23/2019 9:21am BP Systolic 108 mmHg BP Diastolic 68 mmHg Body Temperature 97.6 F Heart Rate 65 /min Respiratory Rate 18 /min Height 65.5 inches 5'5.50" Weight 243.00 lb BMI (Body Mass Index) 39.8 kg/m2 BSA (Body Surface Area) 2.16 m2 [place] body weight in kilograms 58 kg O2 % BldC Oximetry 98 % Results Test Acquired Date Facility Test Result H/L Range Note CBC 11/28/[address] [facility] [address] White Blood 6.6 K/uL Normal 3.1-10.7 1 W/Automated [address] Count Diff [place], [place] [id number] [phone] Red Blood Count 4.70 M/uL Normal 3.90-5.40 Hemoglobin 14.1 gm/dL Normal 11.6-15.8 Hematocrit 43.3 % Normal 36.0-46.1 Mean Cell Volume 92.1 fl Normal 80.9-99.0 Mean Corpuscular HGB 30.0 pg Normal 25.9-32.7 Mean Corpuscular HGB Conc 32.6 g/dL Normal 30.8-34.3 Platelet Count 242 K/uL Normal 155-360 Red Cell Distri Width SD 43.8 fl Normal 36-47 Red Cell Distri Width %CV 13.0 % Normal 11.7-14.4 Mean Platelet Volume 11.6 fl Normal 8.9-12.4 Neut% 48.4 % Normal 40.4-72.8 Lymph % 38.5 % Normal 20.0-42.0 [place] % 6.4 % Normal 4.3-13.2 Eo% 5.5 % Normal 0.0-6.6 Bas% 0.6 % Normal 0.0-1.1 Immature Grans 0.6 % Normal 0.0-5.0 NRBC % 0.0 /100WBC < 10/ 100 WBC Neut# 3.20 K/uL Normal 1.8-7.0 Lymph # 2.54 K/uL Normal 1.0-4.0 [place] # 0.42 K/uL Normal 0.3-0.9 Eos # 0.36 K/uL Normal 0.0-0.5 Baso # 0.04 K/uL Normal 0.0-0.1 Immature Grans Absolute 0.04 K/uL NRBC # 0.00 K/uL Comprehensive 11/28/[address] Glucose 95 mg/dL Normal 74-106 Metabolic Panel [address] [place] [address] [phone] BUN 16 mg/dL Normal 7-18 Creatinine 0.7 mg/dL Normal 0.6-1.3 Glom Filtration Rate, Estimate >60 mL/min >60 If >60 mL/min >60 2 BUN/Creat 22.8 ratio Sodium 141 mmol/L Normal 136-145 Potassium 3.9 mmol/L Normal 3.5-5.1 Chloride 107 mmol/L Normal 98-107 Carbon Dioxide 28 mmol/L Normal 21-32 Anion Gap 6 mEq/L Low 8-16 Calcium 8.8 mg/dL Normal 8.5-10.1 Total Protein 7.5 g/dL Normal 6.4-8.2 Albumin 4.0 g/dL Normal 3.4-5.0 Globulin 3.5 g/dL Normal 1.9-4.3 Alb/Glob 1.1 ratio Bilirubin,Total 0.4 mg/dL Normal 0.2-1.0 Sgot/Ast 16 U/L Normal 15-37 SGPT/Alt 30 U/L Normal 12-78 Alkaline Phosphatase 113 U/L Normal 45-117 Reflex add FT3? Y Reflex add FT4? Y TSH Reflex 11/28/[address] Thyroid Stim 1.86 uIU/mL Normal 0.30-4.20 FT4 And/Or [address] [facility] Hormone FT3 [place] [address] [phone] Reflex add FT3? Y Reflex add FT4? Y 1 Z01.818 E03.9 2 Note: Persistent reduction for 3 months or more in an eGFR <60 mL/min/1.73 m2 defines CKD. Patients with eGFR values >/=60 mL/min/1.73 m2 may also have CKD if evidence of persistent proteinuria is present. The original MDRD equation for estimated GFR is not valid for patients less than 18 years of age. Additional information may be found at www.kdoqi.org. Procedures Date Code Description Status 11/28/2018 92856 EKG-Tracing And Report Completed 08/04/2017 [id number] Mammogram Completed 12/30/2016 180691094 Bone Mineral Density Test Completed Medical Devices Description No Information Available Encounters Type Date Location Provider Dx Diagnosis Office Visit 03/23/2019 [facility] Jus Louis MD I10 Essential ( primary) 9:[address] hypertension R14.0 Abdominal distension (gaseous) F33.1 Major depressive disorder, recurrent, moderate Z12.11 Encounter for screening for malignant neoplasm of colon Office Visit 01/04/2019 11:30a [facility] Medicine Jsu Louis L91.0 Hypertrophic scar Omid LAZCANO MD E06.3 Autoimmune thyroiditis Office Visit 11/28/2018 1:00p [facility] Jus Louis, Z01.818 Encounter for other Omid LAZCANO MD preprocedural examination I10 Essential (primary) hypertension R00.1 Bradycardia, unspecified Assessments Date Code Description Provider 03/23/2019 I10 Essential (primary) hypertension Jus Louis MD 03/23/2019 R14.0 Abdominal distension (gaseous) Jus Louis MD 03/23/2019 F33.1 Major depressive disorder, recurrent, moderate Jus Louis MD 03/23/2019 Z12.11 Encounter for screening for malignant neoplasm of Jus Louis MD colon 01/04/2019 L91.0 Hypertrophic scar Jus Louis MD 01/04/2019 E06.3 Autoimmune thyroiditis Jus Louis MD 11/28/2018 Z01.818 Encounter for other preprocedural examination Jus Louis MD 11/28/2018 I10 Essential (primary) hypertension Jus Louis MD 11/28/2018 R00.1 Bradycardia, unspecified Jus Louis MD Plan of Treatment Future Appointment(s):06/26/2019 10:30 am - Jus Louis MD at [facility] Functional Status Description No Information Available Mental Status Description No Information Available Referrals Refer to Dr Reason for Referral Status Appt Date Andrés Montaño MD 53F fibromyalgia, MDD, HTN, chronic pain, Scheduled 2018 GERD, screening colonoscopy [address], [address] [place] [address] [phone] Peggy España MD Closed 02/22/2019 [facility] Dermatology [address] [place] [id number] [phone]
--- OUTSIDE RECORDS SUMMARY | 2019-06-03 10:36 | XMS REPORT | Summary of Care ---
:1965 Author Organization [facility] Address [address] [place] [id number] Care Team Providers Name Role Phone Jus Louis MD Primary Care Provider Reason for Referral External Surgery Case (Routine) Status Reason Specialty Diagnoses / Procedures Referred By Contact Referred To Contact Open Diagnoses Nontraumatic tear of right rotator cuff, unspecified tear extent Oliver Anderson, Procedures Surgery Case Request, Outside Facilty ONLY [address] [facility] [address] [place] [address] Email: [email or web address] Reason for Visit Reason Comments Follow-up review MRI R shoulder Encounter Details Date Type Department Care Team Description 04/10/2019 [facility] MD Renetta right rotator cuff, [address] unspecified tear extent [place], [place] [address] (Primary Dx) [id number] [facility] [phone] [place] [address] [phone] Allergies Active Allergy Reactions Severity Noted Date Comments Gluten Meal 10/19/2014 Nylon Other (See Comments), Medium 05/02/2018 Patient reports history of Swelling multiple reactions of swelling and drainage with surgical sutures but is unable to determine which specific material composition documented as of this encounter (statuses as of 04/12/2019) Medications Medication Sig Dispensed Refills Start Date End Date Status DULoxetine (CYMBALTA) 30 0 01/13/2018 Active MG capsule [place] 3-6-9 Fatty Acids Take by mouth 0 Active (OMEGA 3-6-9 COMPLEX PO) daily cyclobenzaprine TAKE 1 TABLET 0 05/06/2018 Active (FLEXERIL) 5 MG tablet BY MOUTH THREE TIMES A DAY NEEDED FOR MUSCLE SPASMS hydroxychloroquine Take 1 tablet 60 tablet 11 10/10/2018 10/09/2019 Active (PLAQUENIL) 200 MG by mouth Two tabletIndications: Times Daily Seronegative rheumatoid arthritis, Rheumatoid arthritis, involving unspecified site, unspecified rheumatoid factor presence acetaminophen (TYLENOL) Take 500 mg by 0 Active 500 MG tablet mouth every 6 (six) hours as needed for Pain levothyroxine TAKE 1/2 TABLET 0 01/27/2019 Active (SYNTHROID, LEVOTHROID) BY MOUTH ONCE A 125 MCG tablet DAY losartan (COZAAR) 50 MG Take 50 mg by 1 01/27/2019 Active tablet mouth daily omeprazole (PRILOSEC) 40 Take by mouth 5 01/27/2019 Active MG capsule daily tramadol (ULTRAM) 50 MG Take 1 tablet 60 tablet 0 02/28/2019 Active tabletIndications: by mouth Two Rheumatoid arthritis, Times Daily , involving unspecified Max Daily Dose: site, unspecified 100 mg rheumatoid factor presence, Seronegative rheumatoid arthritis Betamethasone Valerate Apply topically 0 Active 0.1 % External Cream Two Times Daily (VALISONE) documented as of this encounter (statuses as of 04/12/2019) Active Problems No known active problemsdocumented as of this encounter (statuses as of 2018) Social History Tobacco Use Types Packs/Day Years Used Date Never Smoker Smokeless Tobacco: Never Used Alcohol Use Drinks/Week oz/Week Comments No Sex Assigned at Date Recorded Not on file Job Start Date Occupation Industry Not on file Not on file Not on file Travel History Travel Start Travel End No recent travel history available. documented as of this encounter Last Filed Vital Signs Not on filedocumented in this encounter Progress Notes Jakob Parrish - 04/10/2019 11:00 AM EST Jakob Parrish scribing the following service on behalf of Dr. Anderson. Chief Complaint Patient presents with Follow-up review MRI R shoulder Judy Pérez comes to the office for Her right shoulder. She is here post MRI. She continues to have pain in the right shoulder. No interval injury. No neurologic complaints. Right shoulder: Skin is intact. There is tenderness about the rotator cuff with weakness on cuff testing. She has a reasonable motion. The shoulder is stable. Neurovascular intact. MRI right shoulder: images reviewed. Small to moderate full-thickness tear supraspinatus tendon. 53-year-old female with right shoulder rotator cuff tear. Symptoms have continued despite conservative treatment including physical therapy and injection. Inherent/material risks, benefits, limitations and the treatment alternatives were discussed at length. All questions were answered. She would like to proceed on with her right shoulder arthroscopy,acromioplasty and rotator cuff repair. This to be scheduled. She will follow up the day of surgery. Inherent/material risks, benefits, limitations and the treatment alternatives were discussed at length. All questions were answered. Judy will return to her primary care team for preoperative clearance. CC: Jus Louis MD(Thank you) Orders Placed This Encounter Surgery Case Request, Outside Facilty ONLY documented in this encounter Plan of Treatment Date Type Specialty Care Team Description 08/29/2019 Office Visit Rheumatology Tayo Dunbar MD [address] [facility] 2nd Floor [address] [place] [address] [phone] 12/27/2019 Office Visit Endocrinology Daly Crowder MD [address] [place], [place] [id number] Health Maintenance Due Date Last Done Comments Hepatitis C Screening (B. 1965 [id number]) MMR Vaccines (1 of 1 - Standard 1966 series) Varicella Vaccines (1 of 2 - 1966 2-dose childhood series) DTaP,Tdap,and Td Vaccines (1 - 1970 Tdap) HIV Screening 1976 Cervical Cancer Screening 5 years 1984 Breast Cancer Screening 2 years 2013 Colon Cancer Screening 10 yrs 2013 Influenza Vaccine 01/31/2019 Pneumococcal Vaccine: 65+ Years (1 2028 of 2 - PCV13) HIB Vaccines Aged Out No longer eligible based on patient's age to complete this topic Hepatitis A Vaccines Aged Out No longer eligible based on patient's age to complete this topic Hepatitis B Vaccines Aged Out No longer eligible based on patient's age to complete this topic IPV Vaccines Aged Out No longer eligible based on patient's age to complete this topic Pneumococcal Vaccine: Pediatrics Aged Out No longer eligible based on (0 to 5 Years) and At-Risk patient's age to complete this Patients (6 to 64 Years) topic documented as of this encounter Procedures Procedure Name Priority Date/Time Associated Diagnosis Comments SURGERY CASE REQUEST Routine 04/12/2019 6:21 AM Nontraumatic tear of OUTSIDE FACILITY ONLY EST right rotator cuff, unspecified tear extent documented in this encounter Results Not on filedocumented in this encounter Visit Diagnoses Diagnosis Nontraumatic tear of right rotator cuff, unspecified tear extent - Primary documented in this encounter
[2019-06-03 11:49] VITALS: BP 145/71
--- NOTE | 2019-06-03 12:21 | UC ---
UC General HPI - HPI Summary HPI Summary: 2-3 days of nasal ashley. sharp, earaches, body aches and sore throat. Taking tylenol prn. able to drink fluids.no sick contacts or recent travel - History of Current Complaint Chief Complaint: UCRespiratory Stated Complaint: FLU SYMP Time Seen by Provider: 06/03/19 11:59 Hx Obtained From: Patient Hx Last Menstrual Period: SOMETIME IN OCTOBER- SHE IS NOT SURE, PERIODS ARE LESS FREQ Pain Intensity: 8 Aggravating: nothing Alleviating: nothing Associated Signs & Symptoms: Positive: Headache. Negative: Cough, Nausea, SOB - Allergy/Home Medications Allergies/Adverse Reactions: Allergies Allergy/AdvReac Type Severity Reaction Status Date / Time adhesive Allergy Blisters, Verified 06/03/19 11:43 Itching, Swelling gluten Allergy GI Upset, Verified 06/03/19 11:43 Vomiting PMH/Surg Hx/FS Hx/Imm Hx Previously Healthy: Yes Endocrine History: Other - obesity Cardiovascular History: Hypertension GI/ History: Gastroesophageal Reflux - Surgical History Surgical History: Yes Surgery Procedure, Year, and Place: Right TKA; c-sections x 3, tonsilectomy, appy, tubal - Family History Known Family History: Positive: Hypertension, Other - thyroid disease, hyper and hypo - Social History Alcohol Use: None Substance Use Type: None Smoking Status (MU): Former Smoker Type: Cigarettes Amount Used/How Often: 2-3 cigarettes daily Have You Smoked in the Last Year: Yes When Did the Patient Quit Smoking/Using Tobacco: ~2017 Household Exposure Type: Cigarettes Review of Systems All Other Systems Reviewed And Are Negative: Yes Constitutional: Positive: Fever Skin: Negative: Rash ENT: Positive: Sore Throat, Ear Ache Respiratory: Positive: Cough. Negative: Shortness Of Breath Neurological: Positive: Headache. Negative: Weakness Physical Exam Triage Information Reviewed: Yes Appearance: Well-Appearing Vital Signs: Initial Vital Signs Temp 98.5 F 06/03/19 11:44 Pulse 62 06/03/19 11:44 Resp 16 06/03/19 11:44 BP 145/71 06/03/19 11:44 Pulse Ox 99 06/03/19 11:44 Vital Signs Reviewed: Yes Eyes: Positive: Conjunctiva Clear ENT: Positive: Pharynx normal, TMs normal, Uvula midline Neck: Positive: Supple, Nontender, No Lymphadenopathy Respiratory Exam: Normal Cardiovascular Exam: Normal Neurological: Positive: Alert Skin: Negative: Rashes Course/Dx - Course Course Of Treatment: Flu-like illness x 2-3 days w/ no sick contacts, good vitals and unremarkable exam. she requested antibx after being neg. for rapid flu but we discussed indications for antibx. vitals good. recommend rest and fluids . - Differential Dx - Multi-Symptom Differential Diagnoses: Other - Diagnoses Provider Diagnosis: Viral syndrome Discharge ED - Sign-Out/Discharge Documenting (check all that apply): Patient Departure All imaging exams completed and their final reports reviewed: No Studies - Discharge Plan Condition: Good Disposition: HOME Patient Education Materials: Viral Syndrome (ED) Referrals: Jus Louis MD [Primary Care Provider] - Additional Instructions: Please rest and increase your fluids. If you have trouble breathing or are worsening please return. - Billing Disposition and Condition Condition: GOOD Disposition: Home - Attestation Statements Provider Attestation: I was available for consult. This patient was seen by the [facility]. The patient was not presented to , seen by or examined by mo -Alejandro Prince MD
[2019-06-03 12:29] LABS: Influenza A Molecular Negative (Negative); Influenza B Molecular Negative (Negative)
== END 2019-06-03 12:40 | disposition home or self-care (01) ==
LOC: UCCORT 10:13
DX: B34.9 Viral infection, unspecified (principal); J02.9 Acute pharyngitis, unspecified; R51 Headache; H92.09 Otalgia, unspecified ear; R05 Cough; E66.9 Obesity, unspecified; I10 Essential (primary) hypertension; Z87.891 Personal history of nicotine dependence; Z91.09 Other allergy status, other than to drugs and biological substances
CPT/HCPCS: 99211; G0463